=== PATIENT | male | born 1960 | race Caucasian/White ===

== ENCOUNTER 2016-11-01 15:48 | Emergency (ER) | payer BC ==
--- NOTE | 2016-11-01 16:16 | EDPHY ---
H & P Stated Complaint: went to eye dr bp was elevated/sent to ed Time Seen by Provider: 11/01/16 16:09 HPI/ROS: CHIEF COMPLAINT: hypertension HISTORY OF PRESENT ILLNESS: The patient is a 55 year old man who comes to the emergency department for high blood pressure. He states that he was at his eye doctor and they noticed that his pressure was high and told him to come to the ER. The patient has been told this in the past and followed up with his primary who rechecked it and told him that it was not high enough to begin medications. He denies having any symptoms. He denies chest pain or shortness of breath. He denies dizziness or lightheadedness. REVIEW OF SYSTEMS: Constitutional: denies: chills, fever, recent illness, recent injury EENTM: denies: blurred vision, double vision, nose congestion Respiratory: denies: cough, shortness of breath Cardiac: denies: chest pain, irregular heart rate, lightheadedness, palpitations Gastrointestinal/Abdominal: denies: abdominal pain, diarrhea, nausea, vomiting, blood streaked stools Genitourinary: denies: dysuria, frequency, hematuria, pain Musculoskeletal: denies: joint pain, muscle pain Skin: denies: lesions, rash, jaundice, bruising Neurological: denies: headache, numbness, paresthesia, tingling, dizziness, weakness Hematologic/Lymphatic: denies: blood clots, easy bleeding, easy bruising Immunologic/allergic: denies: HIV/AIDS, transplant EXAM: GENERAL: Well-appearing, well-nourished and in no acute distress. HEAD: Atraumatic, normocephalic. EYES: Pupils equal round and reactive to light, extraocular movements intact, sclera anicteric, conjunctiva are normal. ENT: TMs normal, nares patent, oropharynx clear without exudates. Moist mucous membranes. NECK: Normal range of motion, supple without lymphadenopathy or JVD. LUNGS: Breath sounds clear to auscultation bilaterally and equal. No wheezes rales or rhonchi. HEART: Regular rate and rhythm without murmurs, rubs or gallops. ABDOMEN: Soft, nontender, normoactive bowel sounds. No guarding, no rebound. No masses appreciated. BACK: No CVA tenderness, no spinal tenderness, step-offs or deformities EXTREMITIES: Normal range of motion, no pitting or edema. No clubbing or cyanosis. NEUROLOGICAL: Cranial nerves II through XII grossly intact. Normal speech, normal gait. 5/5 strength, normal movement in all extremities, normal sensation PSYCH: Normal mood, normal affect. SKIN: Warm, dry, normal turgor, no visible rashes or lesions. Source: Patient Exam Limitations: No limitations - Personal History Current Tetanus/Diphtheria Vaccine: Yes - Medical/Surgical History Hx Asthma: No Hx Chronic Respiratory Disease: No Hx Diabetes: No Hx Cardiac Disease: No Hx Renal Disease: No Hx Cirrhosis: No Hx Alcoholism: No Hx HIV/AIDS: No Hx Splenectomy or Spleen Trauma: No Other PMH: kidney stones - Family History Significant Family History: No pertinent family hx - Social History Smoking Status: Never smoked Alcohol Use: Sober Drug Use: None Constitutional: Initial Vital Signs Temperature (C) 36.5 C 11/01/16 15:50 Heart Rate 68 11/01/16 15:50 Respiratory Rate 20 11/01/16 15:50 Blood Pressure 187/113 H 11/01/16 15:50 O2 Sat (%) 95 11/01/16 15:50 O2 Delivery Mode Room Air Allergies/Adverse Reactions: No Known Allergies Allergy (Unverified 11/01/16 15:50) Home Medications: Medication Instructions Recorded Hydrochlorothiazide [HCTZ (*)] 25 mg PO DAILY #30 tab 11/01/16 Medical Decision Making ED Course/Re-evaluation: The patient is here with asymptomatic hypertension. I will start him on hydrochlorothiazide but defer long-term treatment to his primary care provider. He does not need emergency treatment. The patient understands and agrees with this plan. He will track his blood pressures. Differential Diagnosis: Partial list of the Differential diagnosis considered include but were not limited to; hypertension, hypertensive urgency and although unlikely based on the history and physical exam, I also considered hypertensive emergency, chest pain, PE, arrhythmia. I discussed these differential diagnoses and the plan with the patient as well as the usual and expected course. The patient understands that the diagnosis is provisional and that in medicine we are not always correct and that further workup is often warranted. Usual and customary warnings were given. All of the patient's questions were answered. The patient was instructed to return to the emergency department should the symptoms at all worsen or return, otherwise to followup with the physician as we discussed. - Data Points Medications Given: Discontinued Medications Hydrochlorothiazide (Hydrochlorothiazide) 25 mg PO DAILY SHELBY Stop: 04/30/17 16:29 Last Admin: 11/01/16 16:45 Dose: 25 mg Departure - Departure Disposition: Home, Routine, Self-Care Clinical Impression: Hypertension Qualifiers: Hypertension type: essential hypertension Qualified Code(s): I10 - Essential ( primary) hypertension Condition: Fair Instructions: Hypertension (ED) Referrals: Loli Gomes MD [Medical Doctor] - As per Instructions Prescriptions: Hydrochlorothiazide [HCTZ (*)] 25 mg PO DAILY #30 tab
[2016-11-01] MEDS ORDERED: HYDROCHLOROTHIAZIDE 25 MG TAB PO SCH (16:30)
[2016-11-01 16:47] VITALS: BP 156/104; PULSE 74; RESP 14; TEMP 98.4; O2SAT 94
== END 2016-11-01 16:47 | disposition home or self-care (01) ==
DX: I10 Essential (primary) hypertension (principal)